=== PATIENT | male | born 1970 | race Caucasian/White ===

== ENCOUNTER → 2023-10-14 06:38 | Day surgery (SDC) | payer BC, SELFPAY | LOC: GI 06:38 | PROVIDERS: ATTENDING PHYSICIAN Internal Medicine Gastroenterology | DX: Z12.11 Encounter for screening for malignant neoplasm of colon (principal); Z80.0 Family history of malignant neoplasm of digestive organs; K64.8 Other hemorrhoids | CPT/HCPCS: G0121 ==

== ENCOUNTER → 2024-08-08 14:48 | Outpatient (REF) | payer BC, SELFPAY | LOC: RAD 14:48 | PROVIDERS: ATTENDING PHYSICIAN Nurse Practitioner Adult Health | DX: M79.674 Pain in right toe(s) (principal) | CPT/HCPCS: 73630 ==

== ENCOUNTER → 2024-12-13 08:25 | Outpatient (REF) | payer BC, SELFPAY | LOC: EMG 08:25 | PROVIDERS: ATTENDING PHYSICIAN Podiatrist Primary Podiatric Medicine; FAMILY PHYSICIAN Internal Medicine | DX: G58.8 Other specified mononeuropathies (principal); R20.0 Anesthesia of skin | CPT/HCPCS: 95886; 95910 ==